=== PATIENT | male | born 1945 | race Two or more races ===

== ENCOUNTER 2021-01-08 07:00 | Day surgery (SDC) | payer OTHER | END 2021-01-08 11:00 | disposition home or self-care (01) | LOC: AMB-ENDOS 07:00 → CIR.AMB 13:15 | PROVIDERS: ATTEND Surgery | DX: D12.4 Benign neoplasm of descending colon (principal); K64.8 Other hemorrhoids; Z20.822 Contact with and (suspected) exposure to COVID-19 ==

== ENCOUNTER 2021-02-13 11:00 | Inpatient (IN) | payer OTHER ==
[~2021-02-13] VITALS: Ht 182.9 cm; Wt 88.5 kg
[2021-02-13] MEDS ORDERED: CARDURA8 MG PO (12:23)
[2021-02-13] MEDS ORDERED: TOPROL XL50 M1 PO (12:23)
[2021-02-13] MEDS ORDERED: COZAAR100 MG PO (12:23)
[2021-02-13] MEDS ORDERED: PEPCID AC20 MG PO (12:24)
[2021-02-13] MEDS ORDERED: ALLOPURINOL300 MG PO (12:24)
[2021-02-13] MEDS ORDERED: TAMS0.4C PO (12:24)
[2021-02-19] MEDS ORDERED: GAVILAX238 GM (08:19)
[2021-02-19] MEDS ORDERED: CHLORTHALIDONE25 MG (08:19)
[2021-02-19] MEDS ORDERED: OMEPRAZOLE20 MG (08:20)
[2021-02-19] MEDS ORDERED: FERROUS SULFAT325 MG (08:20)
[2021-02-21] MEDS ORDERED: PROTONIX40 MG PO (11:32)
[2021-02-21] MEDS ORDERED: HYOSCYAMINE0.125 M1 SL (11:32)
[2021-02-21] MEDS ORDERED: ULTRACET PO (11:33)
== END 2021-02-21 13:54 | disposition home or self-care (01) | DRG 331 ==
LOC: SURH 02-18 06:20 → O/R 02-18 06:20 → SURH 02-18 10:30 → O/R 02-19 13:19 → SURH 02-19 13:21
PROVIDERS: ADMIT Surgery; ATTEND Surgery
PROC: 07BD0ZX Excision of Aortic Lymphatic, Open Approach, Diagnostic (ICD-10-PCS; 2021-02-18)
PROC: 3E0F7SF Introduction of Other Gas into Respiratory Tract, Via Natural or Artificial Opening (ICD-10-PCS; 2021-02-18)
PROC: 0DBL0ZZ Excision of Transverse Colon, Open Approach (ICD-10-PCS; principal; 2021-02-18 10:30)
DX: D12.3 Benign neoplasm of transverse colon (principal); D12.8 Benign neoplasm of rectum; D12.2 Benign neoplasm of ascending colon; Z20.822 Contact with and (suspected) exposure to COVID-19; Z83.71 Family history of colonic polyps